=== PATIENT | male | born 1990 | race Caucasian/White ===

== ENCOUNTER 2020-10-15 14:08 | Emergency (ER) | payer OTHER ==
[~2020-10-15] VITALS: Ht 177.8 cm; Wt 95.2 kg
[~2020-10-15 14:08] MED LIST: DEPAKENE250 MG PO; LEVAQUIN750 MG PO; [UNRECOGNIZED DRUG - REMARK]
[2020-10-15] MEDS ORDERED: HYDROCODON-ACE1 EA11 PO (15:21)
== END 2020-10-15 16:03 | disposition home or self-care (01) ==
LOC: ED 14:08
DX: S91.205A Unspecified open wound of left lesser toe(s) with damage to nail, initial encounter (principal); S96.912A Strain of unspecified muscle and tendon at ankle and foot level, left foot, initial encounter; W22.8XXA Striking against or struck by other objects, initial encounter
CPT/HCPCS: 11730; 73610; 73630; 99283-25; A9270